=== PATIENT | female | born 1965 | race Caucasian/White ===

== ENCOUNTER → 2023-03-04 11:22 | Outpatient (BNVA) | payer BC, SELFPAY | PROVIDERS: PCP Nurse Practitioner; Visit Provider Internal Medicine Rheumatology | DX: Z79.899 Other long term (current) drug therapy (principal); Z11.59 Encounter for screening for other viral diseases; Z11.1 Encounter for screening for respiratory tuberculosis; M45.6 Ankylosing spondylitis lumbar region; M79.642 Pain in left hand; M79.641 Pain in right hand; M79.672 Pain in left foot | CPT/HCPCS: 36415; 73130; 73630; 80076; 82565; 85025; 85651; 86200; 86431; 86480; 86704; 86803; 86812; 87340 ==

== ENCOUNTER → 2023-08-02 16:31 | Outpatient (BNVA) | payer BC, SELFPAY | PROVIDERS: PCP Nurse Practitioner; Visit Provider Internal Medicine Rheumatology | DX: Z79.899 Other long term (current) drug therapy (principal); L40.50 Arthropathic psoriasis, unspecified; R53.1 Weakness; L40.0 Psoriasis vulgaris; Z71.85 Encounter for immunization safety counseling; K90.821 Short bowel syndrome with colon in continuity; E55.9 Vitamin D deficiency, unspecified; H81.13 Benign paroxysmal vertigo, bilateral; M79.7 Fibromyalgia | CPT/HCPCS: 36415; 80076; 82085; 82550; 82565; 85025; 86140 ==